=== PATIENT | male | born 1965 | race Caucasian/White ===

== ENCOUNTER → 2018-07-08 | Outpatient (CLI) | payer BC ==
--- NOTE | 2018-07-08 11:16 | ECHOS ---
STRESS ECHOCARDIOGRAM INDICATIONS: Abnormal EKG. BASELINE HEART RATE: 107 BASELINE BLOOD PRESSURE: 158/79 MAXIMUM HEART RATE: 152 MAXIMUM BLOOD PRESSURE: 214/93 85% MPHR: 142 100% MPHR: 167 METS: 11.9 MAXIMUM STAGE REACHED: 3 TOTAL EXERCISE TIME: 10:11 CLINICAL INFORMATION: Baseline EKG revealed sinus tachycardia without significant ST-T changes. Patient walked on a standard Smith protocol for 10 minutes 11 seconds, achieved a maximal heart rate of 152 beats per minute which is more than 85% of predicted maximal. He developed fatigue and shortness of breath but did not have any angina or arrhythmia. Rare PVCs were noted. EKG did not reveal any ST-segment changes to indicate ischemia. By EKG criteria, this is a negative stress test with good exercise capacity. Baseline echo images revealed normal wall motion and wall thickening of all segments. At peak exercise. there was good augmentation of left ventricular wall motion and wall thickening of all segments suggesting that there is no evidence of stress-induced ischemia on this study. IMPRESSION: 1. Good exercise capacity with a negative stress test by EKG criteria. 2. Normal stress echocardiogram with good exercise capacity. MMODL / IJN: [id number] /
== END | disposition home or self-care (01) ==
LOC: RADNMMAIN 08:56
PROVIDERS: ATTEND Family Medicine
DX: R94.31 Abnormal electrocardiogram [ECG] [EKG] (principal)
CPT/HCPCS: 93351